=== PATIENT | female | born 1990 | race Hispanic/Latino ===

== ENCOUNTER 2016-03-30 16:53 | Emergency (ER) | payer OTHER ==
[~2016-03-30] VITALS: Ht 162.6 cm; Wt 88.6 kg
[2016-03-30 17:04] VITALS: BP 119/84; PULSE 101; RESP 16; O2SAT 98
[2016-03-30 17:40] LABS: BASOPHILS % (AUTO) 0.1 % (0-3); EOSINOPHILS % (AUTO) 0.4 % (0-5); MONOCYTES % (AUTO) 8.3 % (4-12); Mean Corpuscular Hemoglobin 28.9 pg (27.0-35.0); Mean Corpuscular Volume 85.8 fL (81-100); NEUTROPHILS % (AUTO) 65.5 % (40-74); Platelet Count 316 bil/L (150-400)
[2016-03-30 18:00] LABS: Magnesium 2.2 mg/dL (1.6-2.6)
== END 2016-03-30 17:42 | disposition left against medical advice (07) ==
LOC: SED 16:53
DX: R10.9 Unspecified abdominal pain (principal); Z53.21 Procedure and treatment not carried out due to patient leaving prior to being seen by health care provider